=== PATIENT | female | born 1975 | race Caucasian/White ===

== ENCOUNTER 2017-09-16 12:49 | Emergency (ER) | payer BC, OTHER ==
[~2017-09-16] VITALS: Ht 170.2 cm; Wt 50.0 kg
[~2017-09-16 12:49] MED LIST: ADVIN25/60 INH; ALBUAER INH; AMIT10TA6 PO; CLR10 PO; ESCI1TAB9 PO; FLUT0.15 NAE; PRED20TA PO; PRLSR20 PO
[2017-09-16 12:51] VITALS: TEMP 36.8; Ht 170.2 cm; Wt 50.0 kg
[2017-09-16] MEDS ORDERED: SODIUM CHLORIDE 0.9% 1000ML 1,000 ML IV STA (13:02)
--- NOTE | 2017-09-16 13:13 | EMERGENCY ROOM VISIT NOTE ---
History Report prepared by Neno: Tra Sales Under the Supervision of: Dr. Benji Oneal M.D. First contact with patient: 12:55 Chief Complaint: URINARY SYMPTOMS Stated Complaint: POSSIBLE KIDNEY STONE History of Present Illness The patient is a 42 year old female who presents to the Emergency Room with complaints of persistent hematuria that began this morning. The patient states that she has had a couple of episodes of acute back pain in the last two months. She reports the back pain resolves on its own. The patient reports that she currently does not have any back pain, 0 out of 10. She states that this morning, she noticed her urine was red. The patient reports she believes she is having kidney stones due to her symptoms and her mother having a history of them. She denies taking any medications that would turn her urine red, vaginal bleeding, blood in her stools, pain with urination, fever, nausea, and vomiting. The patient states she was recently ill, which triggered her asthma. She reports that she is currently experiencing chest pain and shortness of breath due to her asthma. Source of History: patient Onset: this morning Position: other (global) Quality: other (red urine) Timing: other (persistent) Associated Symptoms: + back pain, No fevers, No nausea, No vomiting, No melena, No hematochezia Note: Denies: vaginal bleeding, pain with urination Review of Systems See HPI for pertinent positives and negatives. A total of ten systems were reviewed and were otherwise negative. Past Medical & Surgical Medical Problems: (1) Asthma (2) Lumbago (3) Tubal Preg W/O Intrauterine Family History Patient reports no known family medical history. Social History Smoking Status: Never Smoker Alcohol Use: none Drug Use: none Marital Status: Housing Status: lives with family Occupation Status: employed Current/Historical Medications Scheduled Budesonide/Formoterol Fumarate (Symbicort 160/4.5 Inhaler ), 2 PUFFS INH BID Escitalopram Oxalate (Lexapro), 10 MG PO DAILY Fluticasone Propionate (Nasal) (Flonase Allergy Relief), 2 SPRAYS NORBERTO DAILY Loratadine (Claritin), 10 MG PO DAILY Montelukast Sodium (Singulair), 10 MG PO DAILY Tamsulosin Hcl (Flomax), 0.4 MG PO DAILY Scheduled PRN Albuterol Sulfate (Proventil Hfa), 2 PUFF INH Q6 PRN for SOB/Wheezing Allergies Coded Allergies: No Known Allergies (Unverified , 09/16/17) Physical Exam Vital Signs Date Time Temp Pulse Resp B/P (MAP) Pulse Ox O2 Delivery O2 Flow Rate FiO2 09/16/17 14:59 68 16 110/62 100 09/16/17 14:16 69 14 109/65 100 Room Air 09/16/17 13:30 71 14 111/63 99 Room Air 09/16/17 12:51 36.8 95 18 102/59 98 Room Air Physical Exam Physical Exam GENERAL: She is oriented to person, place, and time. She appears well- developed and well-nourished. She does not appear distressed. ____ HENT: Exam performed. Head: Normocephalic and atraumatic. Right Ear: External ear normal. No mastoid tenderness. Left Ear: External ear normal. No mastoid tenderness. Mouth/Throat: The oropharynx is clear and moist. No trismus in the jaw. No dental abscesses or uvula swelling. No oropharyngeal exudate or tonsillar abscesses. ____ EYES: Conjunctivae and EOM are normal. Pupils are equal, round, and reactive to light. Right eye exhibits no discharge. Left eye exhibits no discharge. No scleral icterus. ____ NECK: Normal range of motion. Neck supple. No JVD present. No spinous process tenderness present. No carotid bruit present. No rigidity. No tracheal deviation and normal range of motion present. No Brudzinski's sign and no Kernig 's sign noted. ____ CV: Normal rate, regular rhythm, normal heart sounds and intact distal pulses. There is no peripheral edema. Palpable radial pulses bue. ____ PULM/CHEST: Effort normal and breath sounds normal. No respiratory distress. No stridor. She has no wheezes. She has no rales. Chest Wall: She exhibits no tenderness. ____ ABD: The abdomen is soft. Bowel sounds are normal. She has no distension. No mass is present. There is no tenderness. There is no rebound, no guarding, no Williamson's sign and no tenderness at McBurney's point. Rovsig negative MUSC/SKEL: Normal range of motion. There is no peripheral edema, tenderness or deformity. LYMPH: No cervical adenopathy. ____ NEURO: She is alert and oriented to person, place, and time. She has normal strength. No cranial nerve deficit or sensory deficit. Coordination and gait normal. GCS eye subscore is 4. GCS verbal subscore is 5. GCS motor subscore is 6. Cerebellar tests wnl. ____ SKIN: Skin is warm and dry. She is not diaphoretic. ____ PSYCH: She has a normal mood and affect. Her behavior is normal. Judgment and thought content normal. ____ Medical Decision & Procedures ER Provider Diagnostic Interpretation: Radiology results as stated below per my review and radiologist interpretation: CT SCAN OF THE ABDOMEN AND PELVIS WITHOUT CONTRAST CLINICAL HISTORY: Right flank pain COMPARISON STUDY: No previous studies for comparison. TECHNIQUE: CT scan of the abdomen and pelvis was performed from the lung bases to the proximal femurs. Images are reviewed in the axial, sagittal, and coronal planes. IV contrast was not administered for this examination. A dose lowering technique was utilized adhering to the principles of ALARA. CT DOSE: 358.57 mGy.cm FINDINGS: Lower chest: The heart is normal in size and configuration, without pericardial effusion. The lung bases and pleural spaces are clear. Liver: The unenhanced liver is normal in size, contour, and attenuation. There is no intrahepatic biliary ductal dilatation. Gallbladder: Unremarkable. Spleen: Normal in size and attenuation. Pancreas: Unremarkable. Adrenal glands: Unremarkable. Kidneys: There is a 2.5 mm upper pole right renal calculus. There is right-sided hydronephrosis and hydroureter. There is a 4.5 mm proximal right ureteral calculus. Bowel: There are no transition zones indicate bowel obstruction. The appendix appears normal. There is no acute diverticulitis. Peritoneum: There is no intraperitoneal free air or abdominal ascites. Vasculature: The abdominal aorta is normal in course and caliber. Adenopathy: None. Pelvic viscera: The bladder, and pelvic viscera are unremarkable. Skeletal structures: No destructive osseous lesions are seen. IMPRESSION: 1. Right-sided hydronephrosis and hydroureter 2. 4.5 mm proximal right ureteral calculus at the superior L3 level 3. 2.5 mm upper pole right renal calculus 4. No evidence of bowel obstruction. No evidence of free air 5. Normal appendix Electronically signed by: Bruce Gomez M.D. 09/16/2017 1:52 PM Dictated Date/Time: 09/16/2017 1:48 PM Laboratory Results 09/16/17 13:15 Red Blood Count 4.33, Mean Corpuscular Volume 91.0, Mean Corpuscular Hemoglobin 29.8, Mean Corpuscular Hemoglobin Concent 32.7, Mean Platelet Volume 9.6, Neutrophils (%) (Auto) 63.5, Lymphocytes (%) (Auto) 26.4, Monocytes (%) (Auto) 7.3, Eosinophils (%) (Auto) 2.1, Basophils (%) (Auto) 0.5, Neutrophils # (Auto) 3.63, Lymphocytes # (Auto) 1.51, Monocytes # (Auto) 0.42, Eosinophils # (Auto) 0.12, Basophils # (Auto) 0.03 09/16/17 13:15 Test 09/16/17 13:15 White Blood Count 5.72 K/uL (4.8-10.8) Red Blood Count 4.33 M/uL (4.2-5.4) Hemoglobin 12.9 g/dL (12.0-16.0) Hematocrit 39.4 % (37-47) Mean Corpuscular Volume 91.0 fL (80-100) Mean Corpuscular Hemoglobin 29.8 pg (25-34) Mean Corpuscular Hemoglobin Concent 32.7 g/dl (32-36) Platelet Count 258 K/uL (130-400) Mean Platelet Volume 9.6 fL (7.4-10.4) Neutrophils (%) (Auto) 63.5 % Lymphocytes (%) (Auto) 26.4 % Monocytes (%) (Auto) 7.3 % Eosinophils (%) (Auto) 2.1 % Basophils (%) (Auto) 0.5 % Neutrophils # (Auto) 3.63 K/uL (1.4-6.5) Lymphocytes # (Auto) 1.51 K/uL (1.2-3.4) Monocytes # (Auto) 0.42 K/uL (0.11-0.59) Eosinophils # (Auto) 0.12 K/uL (0-0.5) Basophils # (Auto) 0.03 K/uL (0-0.2) RDW Standard Deviation 43.2 fL (36.4-46.3) RDW Coefficient of Variation 12.9 % (11.5-14.5) Immature Granulocyte % (Auto) 0.2 % Immature Granulocyte # (Auto) 0.01 K/uL (0.00-0.02) Urine Color RED Urine Appearance CLEAR (CLEAR) Urine pH 5.5 (4.5-7.5) Urine Specific [place] 1.012 (1.000-1.030) Urine Protein TRACE (NEG) Urine Glucose (UA) NEG (NEG) Urine Ketones NEG (NEG) Urine Occult Blood 3+ (NEG) Urine Nitrite NEG (NEG) Urine Bilirubin NEG (NEG) Urine Urobilinogen NEG (NEG) Urine Leukocyte Esterase TRACE (NEG) Urine WBC (Auto) 1-5 /hpf (0-5) Urine RBC (Auto) >30 /hpf (0-4) Urine Hyaline Casts (Auto) 1-5 /lpf (0-5) Urine Epithelial Cells (Auto) 20-30 /lpf (0-5) Urine Bacteria (Auto) NEG (NEG) Urine Test NEG (NEG) Anion Gap 4.0 mmol/L (3-11) Est Creatinine Clear Calc Drug Dose 79.8 ml/min Estimated GFR () 120.1 Estimated GFR (Non- 103.6 BUN/Creatinine Ratio 20.5 (10-20) Calcium Level 8.8 mg/dl (8.5-10.1) Laboratory results reviewed by me Medications Administered Medications (Trade) Dose Ordered Sig/Thong Route Start Time Stop Time Status Last Admin Dose Admin Sodium Chloride 1,000 ml @ 999 mls/hr Q1H1M STAT IV 09/16/17 13:02 09/16/17 14:02 DC 09/16/17 13:26 999 MLS/HR ED Course 1259: The patient was evaluated in room B08. A complete history and physical exam was performed. 1302: Ordered Sodium Chloride 1000 ml @ 999 mls/hr IV. 1400: I reevaluated the patient. Her vital signs are stable. Labs within normal limits with the exception of urine which shows hematuria, no signs of infection. Her CT shows two right sided kidney stones with hydronephrosis and hydroureter. Patient is able to void and having no problems passing urine. No pain upon repeat examination. She is not experiencing pain with urination at this time. She will be discharged with Flomax and will follow up with urology. DISCHARGE - Plan of care discussed with patient and questions answered. The patient was given both verbal and printed discharge instructions. The patient verbalized understanding and ability to comply. The patient is to seek outpatient follow up as noted in the discharge instructions. The patient verbalized understanding and ability to comply. The patient is discharged in stable condition. The patient was instructed to return for worsening symptoms. Medical Decision vital signs are stable. Labs within normal limits with the exception of urine which shows hematuria, no signs of infection. Her CT shows two right sided kidney stones with hydronephrosis and hydroureter. Patient is able to void and having no problems passing urine. No pain upon repeat examination. She is not experiencing pain with urination at this time. She will be discharged with Flomax and will follow up with urology. DISCHARGE - Plan of care discussed with patient and questions answered. The patient was given both verbal and printed discharge instructions. The patient verbalized understanding and ability to comply. The patient is to seek outpatient follow up as noted in the discharge instructions. The patient verbalized understanding and ability to comply. The patient is discharged in stable condition. The patient was instructed to return for worsening symptoms. Medication Reconcilliation Current Medication List: was personally reviewed by me Blood Pressure Screening Patient's blood pressure: Normal blood pressure Impression Primary Impression: Kidney stones Scribe Attestation The scribe's documentation has been prepared under my direction and personally reviewed by me in its entirety. I confirm that the note above accurately reflects all work, treatment, procedures, and medical decision making performed by me. The chart was completed utilizing [employer] Speech voice recognition software. Grammatical errors, random word insertions, pronoun errors, and incomplete sentences are an occasional consequence of this system due to software limitations, ambient noise, and hardware issues. Any formal questions or concerns about the content, text, or information contained within the body of this dictation should be directly addressed to the physician for clarification. Departure Information Dispostion Home / Self-Care Prescriptions Tamsulosin Hcl (FLOMAX) 0.4 Mg Cap 0.4 MG PO DAILY for 10 Days, #10 CAP Prov: Benji Oneal M.D. 09/16/17 Referrals Bianca Romero M.D. (PCP) Praneeth Clarke M.D. Forms HOME CARE DOCUMENTATION FORM, IMPORTANT VISIT INFORMATION Patient Instructions Kidney Stones - [facility], [facility]
[2017-09-16 13:24] LABS: BASO % 0.5 %; BASO ABS # 0.03 K/uL (0-0.2); EOS % 2.1 %; EOS ABS # 0.12 K/uL (0-0.5); HEMATOCRIT 39.4 % (37-47); HEMOGLOBIN 12.9 g/dL (12.0-16.0); IG# 0.01 K/uL (0.00-0.02); LYMPH % 26.4 %; LYMPH ABS # 1.51 K/uL (1.2-3.4); MEAN CORPUSCULAR HEMOGLOBIN 29.8 pg (25-34); MEAN CORPUSCULAR HGB CONC 32.7 g/dl (32-36); MEAN PLATELET VOLUME 9.6 fL (7.4-10.4); MONO % 7.3 %; MONO ABS # 0.42 K/uL (0.11-0.59); NEUT % 63.5 %; NEUT ABS # 3.63 K/uL (1.4-6.5); PLATELET COUNT 258 K/uL (130-400); RED CELL DISTRIBUTION WIDTH CV 12.9 % (11.5-14.5); RED CELL DISTRIBUTION WIDTH SD 43.2 fL (36.4-46.3); WHITE BLOOD COUNT 5.72 K/uL (4.8-10.8)
[2017-09-16 13:38] LABS: CALCIUM 8.8 mg/dl (8.5-10.1); CREATININE 0.71 mg/dl (0.60-1.20); POTASSIUM 3.9 mmol/L (3.5-5.1)
--- NOTE | 2017-09-16 13:53 | DIAGNOSTIC IMAGING REPORT ---
CT SCAN OF THE ABDOMEN AND PELVIS WITHOUT CONTRAST CLINICAL HISTORY: Right flank pain COMPARISON STUDY: No previous studies for comparison. TECHNIQUE: CT scan of the abdomen and pelvis was performed from the lung bases to the proximal femurs. Images are reviewed in the axial, sagittal, and coronal planes. IV contrast was not administered for this examination. A dose lowering technique was utilized adhering to the principles of ALARA. CT DOSE: 358.57 mGy.cm FINDINGS: Lower chest: The heart is normal in size and configuration, without pericardial effusion. The lung bases and pleural spaces are clear. Liver: The unenhanced liver is normal in size, contour, and attenuation. There is no intrahepatic biliary ductal dilatation. Gallbladder: Unremarkable. Spleen: Normal in size and attenuation. Pancreas: Unremarkable. Adrenal glands: Unremarkable. Kidneys: There is a 2.5 mm upper pole right renal calculus. There is right-sided hydronephrosis and hydroureter. There is a 4.5 mm proximal right ureteral calculus. Bowel: There are no transition zones indicate bowel obstruction. The appendix appears normal. There is no acute diverticulitis. Peritoneum: There is no intraperitoneal free air or abdominal ascites. Vasculature: The abdominal aorta is normal in course and caliber. Adenopathy: None. Pelvic viscera: The bladder, and pelvic viscera are unremarkable. Skeletal structures: No destructive osseous lesions are seen. IMPRESSION: 1. Right-sided hydronephrosis and hydroureter 2. 4.5 mm proximal right ureteral calculus at the superior L3 level 3. 2.5 mm upper pole right renal calculus 4. No evidence of bowel obstruction. No evidence of free air 5. Normal appendix Electronically signed by: Bruce Gomez M.D. 09/16/2017 1:52 PM Dictated Date/Time: 09/16/2017 1:48 PM
[2017-09-16] MEDS ORDERED: MONT1TAB3 PO (14:25)
[2017-09-16] MEDS ORDERED: SYMIN160 INH (14:25)
[2017-09-16] MEDS ORDERED: TAMS0.4C38 PO (14:26)
[2017-09-16 14:59] VITALS: BP 110/62; PULSE 68; O2SAT 100
== END 2017-09-16 14:59 | disposition home or self-care (01) ==
LOC: C.EDB 12:50
DX: N20.0 Calculus of kidney (principal); N13.30 Unspecified hydronephrosis; N13.4 Hydroureter; J45.909 Unspecified asthma, uncomplicated; Z79.51 Long term (current) use of inhaled steroids; Z79.1 Long term (current) use of non-steroidal anti-inflammatories (NSAID); Z79.899 Other long term (current) drug therapy

== ENCOUNTER 2017-09-18 17:47 | Inpatient (IN) | payer OTHER ==
[~2017-09-18] VITALS: Ht 170.2 cm; Wt 61.0 kg
[~2017-09-18 17:47] MED LIST changes: -ADVIN25/60 INH; -AMIT10TA6 PO; +MONT1TAB3 PO; -PRED20TA PO; -PRLSR20 PO; +SYMIN160 INH; +TAMS0.4C38 PO
[2017-09-18] MEDS ORDERED: SODIUM CHLORIDE 0.9% 1000ML 1,000 ML IV STA (18:05)
[2017-09-18] MEDS ORDERED: ONDANSETRON INJ 2 MG/ML 2 ML VIAL IV STA (18:05)
[2017-09-18] MEDS ORDERED: HYDROmorphone INJ 1 MG/ML SYR IV STA (18:05)
--- NOTE | 2017-09-18 18:09 | EMERGENCY ROOM VISIT NOTE ---
History Report prepared by Neno: Samuel Mcnair Under the Supervision of: Dr. Huey Bennett M.D. First contact with patient: 17:58 Chief Complaint: KIDNEY STONE Stated Complaint: KIDNEY STONES History of Present Illness The patient is a 42 year old female who presents to the Emergency Room with complaints of worsening right sided flank pain beginning two days ago. The patient states she was evaluated in the Emergency Department on Sunday. She reports she had a CT scan that revealed kidney stones in her right kidney. The patient notes she followed up with Dr. Wade from [facility] today. She states she was supposed to have outpatient surgery for her current stones because of the anatomy of the patient's body. The patient notes she was told, if her symptoms worsened, to come to the ED and be admitted to medicine. She states she was told Dr. Wade would evaluate her tomorrow morning. She notes she was given Vicodin and taking ibuprofen, and it minimally improved her discomfort. The patient reports she has been nauseous and has not vomited and lost consciousness. She notes she has a strong family history of kidney stones, but she has not had one before. The patient states she has a history of asthma, and she uses Cymbalta. She reports she is currently overcoming a flare, and she has not had to use her rescue inhaler today. The patient denies fevers, rashes, swelling in her legs, chest pain, burning with urination, diarrhea, and recent GI sickness that would cause her to be dehydrated. Source of History: patient Onset: two days ago Position: other (right sided flank) Timing: worsening Modifying Factors (Relieving): ibuprofen (minimal), other (Vicodin - minimal ) Associated Symptoms: + nausea, No LOC, No fevers, No chest pain, No vomiting , No diarrhea Note: Denies: swelling in her legs, burning with urination Review of Systems See HPI for pertinent positives & negatives. A total of 10 systems reviewed and were otherwise negative. Past Medical & Surgical Medical Problems: (1) Asthma (2) Concussion (3) Contusion, back (4) Fall involving ice skates (5) Lumbago (6) Tubal Preg W/O Intrauterine Surgical Problems: (1) History of hysteroscopy (2) Hx of ectopic Family History Diabetes mellitus FH: lung disease FHx: cancer FHx: gallbladder disease Hypertension Kidney disease Kidney stones Social History Smoking Status: Never Smoker Alcohol Use: none Drug Use: none Marital Status: Housing Status: lives with family Occupation Status: employed Current/Historical Medications Scheduled Budesonide/Formoterol Fumarate (Symbicort 160/4.5 Inhaler ), 2 PUFFS INH BID Escitalopram Oxalate (Lexapro), 10 MG PO HS Loratadine (Claritin), 10 MG PO HS Montelukast Sodium (Singulair), 10 MG PO HS Tamsulosin Hcl (Flomax), 0.4 MG PO HS Scheduled PRN Albuterol Sulfate (Proventil Hfa), 2 PUFF INH Q6 PRN for SOB/Wheezing Fluticasone Propionate (Nasal) (Flonase Allergy Relief), 2 SPRAYS NORBERTO DAILY PRN for CONGESTION Hydrocodone/Acetaminophen 5MG/325MG (Sabael 5MG/325MG), 1 TAB PO Q6 PRN for Pain Allergies Coded Allergies: No Known Allergies (Unverified , 09/18/17) Physical Exam Vital Signs Date Time Temp Pulse Resp B/P (MAP) Pulse Ox O2 Delivery O2 Flow Rate FiO2 09/18/17 17:57 36.7 70 18 106/59 98 Room Air Physical Exam GENERAL: Patient is uncomfortable and dehydrated-appearing and in moderate distress. EYES: No scleral icterus, unremarkable pupils. ENT: Mucous membranes moist, no nasal congestion. NECK: No masses appreciated, no meningismus, trachea is midline. RESPIRATORY: No dyspnea. Clear to auscultation and equal bilaterally. No wheeze , no rhonchi. CARDIOVASCULAR: Regular rate and rhythm. No murmurs, rubs, gallops appreciated. GASTROINTESTINAL: Abdomen soft, vague right lateral abdominal tenderness upon palpation, no peritonitis. Bowel sounds positive. No masses appreciated. BACK: No midline tenderness, no CVA tenderness EXTREMITIES: Normal motion all extremities, no cyanosis, no edema. NEUROLOGIC: Alert and oriented, no acute motor or sensory deficits, no focal weakness, cranial nerves grossly intact. SKIN: No rash, no jaundice, no diaphoresis. Medical Decision & Procedures Laboratory Results 09/18/17 18:20 Red Blood Count 4.14, Mean Corpuscular Volume 89.9, Mean Corpuscular Hemoglobin 30.0, Mean Corpuscular Hemoglobin Concent 33.3, Mean Platelet Volume 9.4, Neutrophils (%) (Auto) 69.1, Lymphocytes (%) (Auto) 17.7, Monocytes (%) (Auto) 10.8, Eosinophils (%) (Auto) 2.2, Basophils (%) (Auto) 0.1, Neutrophils # (Auto ) 6.45, Lymphocytes # (Auto) 1.65, Monocytes # (Auto) 1.01, Eosinophils # (Auto ) 0.21, Basophils # (Auto) 0.01 09/18/17 18:20 Test 09/18/17 18:20 09/18/17 18:35 White Blood Count 9.34 K/uL (4.8-10.8) Red Blood Count 4.14 M/uL (4.2-5.4) Hemoglobin 12.4 g/dL (12.0-16.0) Hematocrit 37.2 % (37-47) Mean Corpuscular Volume 89.9 fL (80-100) Mean Corpuscular Hemoglobin 30.0 pg (25-34) Mean Corpuscular Hemoglobin Concent 33.3 g/dl (32-36) Platelet Count 244 K/uL (130-400) Mean Platelet Volume 9.4 fL (7.4-10.4) Neutrophils (%) (Auto) 69.1 % Lymphocytes (%) (Auto) 17.7 % Monocytes (%) (Auto) 10.8 % Eosinophils (%) (Auto) 2.2 % Basophils (%) (Auto) 0.1 % Neutrophils # (Auto) 6.45 K/uL (1.4-6.5) Lymphocytes # (Auto) 1.65 K/uL (1.2-3.4) Monocytes # (Auto) 1.01 K/uL (0.11-0.59) Eosinophils # (Auto) 0.21 K/uL (0-0.5) Basophils # (Auto) 0.01 K/uL (0-0.2) RDW Standard Deviation 42.3 fL (36.4-46.3) RDW Coefficient of Variation 12.9 % (11.5-14.5) Immature Granulocyte % (Auto) 0.1 % Immature Granulocyte # (Auto) 0.01 K/uL (0.00-0.02) Prothrombin Time 10.3 SECONDS (9.0-12.0) Prothromb Time International Ratio 1.0 (0.9-1.1) Activated Partial Thromboplast Time 28.8 SECONDS (21.0-31.0) Partial Thromboplastin Ratio 1.1 Anion Gap 4.0 mmol/L (3-11) Est Creatinine Clear Calc Drug Dose 70.5 ml/min Estimated GFR () 81.3 Estimated GFR (Non- 70.2 BUN/Creatinine Ratio 22.3 (10-20) Calcium Level 9.1 mg/dl (8.5-10.1) Urine Color YELLOW Urine Appearance CLEAR (CLEAR) Urine pH 6.0 (4.5-7.5) Urine Specific [place] 1.023 (1.000-1.030) Urine Protein NEG (NEG) Urine Glucose (UA) NEG (NEG) Urine Ketones NEG (NEG) Urine Occult Blood 2+ (NEG) Urine Nitrite NEG (NEG) Urine Bilirubin NEG (NEG) Urine Urobilinogen NEG (NEG) Urine Leukocyte Esterase SMALL (NEG) Urine WBC (Auto) 1-5 /hpf (0-5) Urine RBC (Auto) 0-4 /hpf (0-4) Urine Hyaline Casts (Auto) 1-5 /lpf (0-5) Urine Epithelial Cells (Auto) 20-30 /lpf (0-5) Urine Bacteria (Auto) 1+ (NEG) Urine Crystals CALCIUM OXALATE (NONE Urine Mucus PRESENT (NONE PRSENT) Urine Test NEG (NEG) Laboratory results as reviewed by me. Medications Administered Medications (Trade) Dose Ordered Sig/Thong Route Start Time Stop Time Status Last Admin Dose Admin Sodium Chloride 1,000 ml @ 999 mls/hr Q1H1M STAT IV 09/18/17 18:05 09/18/17 19:05 DC 09/18/17 18:31 999 MLS/HR Hydromorphone HCl (Dilaudid Inj) 1 mg NOW STAT IV 09/18/17 18:05 09/18/17 18:08 DC 09/18/17 18:31 1 MG Ondansetron HCl (Zofran Inj) 4 mg NOW STAT IV 09/18/17 18:05 09/18/17 18:08 DC 09/18/17 18:31 4 MG Ketorolac Tromethamine (Toradol Inj) 30 mg NOW STAT IV 09/18/17 18:26 09/18/17 18:27 DC 09/18/17 18:46 30 MG Promethazine HCl 12.5 mg/Sodium Chloride 50.5 ml @ 204 mls/hr TODAY@1904 IV 09/18/17 19:04 09/18/17 22:00 DC 09/18/17 19:18 204 MLS/HR ED Course 1800: The patient was evaluated in room B11B. A complete history and physical exam was performed. Discussed results and treatment plan with the patient. She verbalized understanding and agreement with the treatment plan. The patient will be evaluated for further management. 180: I discussed the patient's case with Dr. Wade, Urology. She requested a hospitalist evaluation to watch the patient overnight. She feels Toradol is acceptable for pain. 1829: I discussed the patient's case with Brandi Faust PA-C, [facility]. The patient will be evaluated for further management and care. Medical Decision Differential: Renal Colic, Pyelonephritis, Hydronephrosis, Appendicitis, Diverticulitis, Retroperitoneal Bleed/Infection, Aortic Pathology, MSK, Neurologic Pathology, amongst other pathologies entertained. 42 yr old female with known right ureteral stones and hydronephrosis from visit 2 days ago. Failing outpatient therapy with Vicodin and Motrin. Already seen by Uro who plans procedure tomorrow. Reviewed with Dr Wade who requests hospitalist eval and she will take patient to OR tomorrow. Patient given Dilaudid, Toradol, Zofran IV fluids with improvement. Labs stable. She is not septic appearing. She has no UTI symptoms. Medication Reconcilliation Current Medication List: was personally reviewed by me Blood Pressure Screening Patient's blood pressure: Normal blood pressure Blood pressure disposition: Did not require urgent referral Consults Time Called: 1803 Consulting Physician: Dr. Wade, Urology Returned Call: [phone] I discussed the patient's case with Dr. Wade, Urology. She requested a hospitalist evaluation to watch the patient overnight. She feels Toradol is acceptable for pain. Additional Consults: Time Called: 1826 Consulted Physician: Brandi Faust PA-C, [facility] Returned Call: [phone] Additional Comments: I discussed the patient's case with Brandi Schreckengost, PA-C, [facility]. The patient will be evaluated for further management and care. Impression Primary Impression: Right ureteral stone Additional Impressions: Hydronephrosis Failure of outpatient treatment Scribe Attestation The scribe's documentation has been prepared under my direction and personally reviewed by me in its entirety. I confirm that the note above accurately reflects all work, treatment, procedures, and medical decision making performed by me. Departure Information Dispostion Being Evaluated By Hospitalist Referrals Bianca Romero M.D. (PCP) Patient Instructions My [facility] Health Problem Qualifiers
[2017-09-18] MEDS ORDERED: KETOROLAC TROMETHAMINE 30 MG/ML VIAL IV STA (18:26)
[2017-09-18] MEDS ORDERED: TAMS0.4C38 PO (18:30)
[2017-09-18 18:35] LABS: BASO % 0.1 %; BASO ABS # 0.01 K/uL (0-0.2); EOS % 2.2 %; EOS ABS # 0.21 K/uL (0-0.5); HEMATOCRIT 37.2 % (37-47); HEMOGLOBIN 12.4 g/dL (12.0-16.0); IG# 0.01 K/uL (0.00-0.02); LYMPH % 17.7 %; LYMPH ABS # 1.65 K/uL (1.2-3.4); MEAN CELL VOLUME 89.9 fL (80-100); MEAN CORPUSCULAR HGB CONC 33.3 g/dl (32-36); MEAN PLATELET VOLUME 9.4 fL (7.4-10.4); MONO % 10.8 %; MONO ABS # 1.01 K/uL (0.11-0.59); NEUT % 69.1 %; NEUT ABS # 6.45 K/uL (1.4-6.5); PLATELET COUNT 244 K/uL (130-400); RED CELL DISTRIBUTION WIDTH CV 12.9 % (11.5-14.5); RED CELL DISTRIBUTION WIDTH SD 42.3 fL (36.4-46.3); WHITE BLOOD COUNT 9.34 K/uL (4.8-10.8)
[2017-09-18 18:51] LABS: CALCIUM 9.1 mg/dl (8.5-10.1); CREATININE 0.98 mg/dl (0.60-1.20)
[2017-09-18] MEDS ORDERED: PROMETHAZINE HCL INJ 12.5 MG in SODIUM CHLORIDE 0.9% 50ML 50 ML IV SCH (19:04)
[2017-09-18] MEDS ORDERED: POLYETHYLENE (MIRALAX) 17 GM PACK PO PRN (19:15)
[2017-09-18 19:18] LABS: PTT PATIENT 28.8 SECONDS (21.0-31.0)
[2017-09-18] MEDS ORDERED: HYDR-5688 PO (19:21)
[2017-09-18 19:22] VITALS: Ht 170.2 cm; Wt 61.0 kg
[2017-09-18] MEDS ORDERED: FLUTICASONE PROPIONATE NA SPR 16 GM BTL NAE PRN (19:30)
[2017-09-18] MEDS ORDERED: ALBUTEROL HFA 8 GM INHALER INH PRN (19:30)
--- NOTE | 2017-09-18 19:51 | History and Physical ---
History & Physical Date & Time of Service: September 18, 2017 at 19:34 Chief Complaint: Kidney Stones Primary Care Physician: Bianca Romero M.D. History of Present Illness Source: patient, clinic records, hospital records Pt is 42 y/o F with PMH asthma, anxiety presented to ER with c/o R flank pain. Patient seen in ER 09/16/17 for right flank pain and diagnosed with right ureteral stone was discharged home. Patient taking Flomax. Patient followed up with Dr. Wade-urologist today and given hydrocodone for pain with the plan of outpatient procedure-ureteroscopy on 09/21/17. Today patient developed increased pain not relieved with hydrocodone. In ER patient with some nausea. Patient reports is still urinating and denies any dysuria. Noticed hematuria 2 days ago none since. Denies history of kidney stone in past. Denies fever/ chills, diaphoresis, V/D/C, NINA, dizziness, syncope, vision changes, neck pain, CP, SOB, orthopnea, palpitations, cough, sore throat, choking, other abdominal pain, pelvic pain, weakness, extremity edema, rashes. Past Medical/Surgical History Medical Problems: (1) Asthma Status: Chronic (2) Concussion Status: Resolved (3) Contusion, back Status: Resolved (4) Fall involving ice skates Status: Resolved Surgical Problems: (1) History of hysteroscopy Status: Resolved (2) Hx of ectopic Status: Resolved Family History Diabetes mellitus FH: lung disease FHx: cancer FHx: gallbladder disease Hypertension Kidney disease Kidney stones Social History Smoking Status: Never Smoker Smokeless Tobacco Use: No Alcohol Use: none Drug Use: none Marital Status: Occupational Status: employed Immunizations History of Influenza Vaccine: Unknown History of Tetanus Vaccine?: No History of Pneumococcal: No History of Hepatitis B Vaccine: Unknown Allergies Coded Allergies: No Known Allergies (Unverified , 09/18/17) Home Medications Scheduled Budesonide/Formoterol Fumarate (Symbicort 160/4.5 Inhaler ), 2 PUFFS INH BID Escitalopram Oxalate (Lexapro), 10 MG PO HS Loratadine (Claritin), 10 MG PO HS Montelukast Sodium (Singulair), 10 MG PO HS Tamsulosin Hcl (Flomax), 0.4 MG PO HS Scheduled PRN Albuterol Sulfate (Proventil Hfa), 2 PUFF INH Q6 PRN for SOB/Wheezing Fluticasone Propionate (Nasal) (Flonase Allergy Relief), 2 SPRAYS NORBERTO DAILY PRN for CONGESTION Hydrocodone/Acetaminophen 5MG/325MG ([place] 5MG/325MG), 1 TAB PO Q6 PRN for Pain Review of Systems See HPI for pertinent positives & negatives. All other systems reviewed and were otherwise negative Physical Exam Vital Signs Date Time Temp Pulse Resp B/P (MAP) Pulse Ox O2 Delivery O2 Flow Rate FiO2 09/18/17 19:24 36.7 70 18 106/59 98 09/18/17 17:57 36.7 70 18 106/59 98 Room Air General Appearance: WD/WN, + mild distress Head: normocephalic, atraumatic Eyes: normal inspection, sclerae normal ENT: hearing grossly normal, pharynx normal, + pertinent finding (mucous membranes moist) Neck: supple, trachea midline Respiratory/Chest: lungs clear, normal breath sounds, no respiratory distress Cardiovascular: regular rate, rhythm, no murmur Abdomen/GI: normal bowel sounds, non tender, soft Back: + right CVA tenderness Extremities/Musculoskelatal: no calf tenderness, normal capillary refill, no pedal edema, normal range of motion Neurologic/Psych: alert, normal mood/affect, oriented x 3 Skin: warm/dry Diagnostics Laboratory Results Results Past 24 Hours Test 09/18/17 18:20 09/18/17 18:35 Range/Units White Blood Count 9.34 4.8-10.8 K/uL Red Blood Count 4.14 4.2-5.4 M/uL Hemoglobin 12.4 12.0-16.0 g/dL Hematocrit 37.2 37-47 % Mean Corpuscular Volume 89.9 80-100 fL Mean Corpuscular Hemoglobin 30.0 25-34 pg Mean Corpuscular Hemoglobin Concent 33.3 32-36 g/dl Platelet Count 244 130-400 K/uL Mean Platelet Volume 9.4 7.4-10.4 fL Neutrophils (%) (Auto) 69.1 % Lymphocytes (%) (Auto) 17.7 % Monocytes (%) (Auto) 10.8 % Eosinophils (%) (Auto) 2.2 % Basophils (%) (Auto) 0.1 % Neutrophils # (Auto) 6.45 1.4-6.5 K/uL Lymphocytes # (Auto) 1.65 1.2-3.4 K/uL Monocytes # (Auto) 1.01 0.11-0.59 K/uL Eosinophils # (Auto) 0.21 0-0.5 K/uL Basophils # (Auto) 0.01 0-0.2 K/uL RDW Standard Deviation 42.3 36.4-46.3 fL RDW Coefficient of Variation 12.9 11.5-14.5 % Immature Granulocyte % (Auto) 0.1 % Immature Granulocyte # (Auto) 0.01 0.00-0.02 K/uL Prothrombin Time 10.3 9.0-12.0 SECONDS Prothromb Time International Ratio 1.0 0.9-1.1 Activated Partial Thromboplast Time 28.8 21.0-31.0 SECONDS Partial Thromboplastin Ratio 1.1 Sodium Level 140 136-145 mmol/L Potassium Level 4.0 3.5-5.1 mmol/L Chloride Level 106 98-107 mmol/L Carbon Dioxide Level 30 21-32 mmol/L Anion Gap 4.0 3-11 mmol/L Blood Urea Nitrogen 22 7-18 mg/dl Creatinine 0.98 0.60-1.20 mg/dl Est Creatinine Clear Calc Drug Dose 70.5 ml/min Estimated GFR () 81.3 Estimated GFR (Non- 70.2 BUN/Creatinine Ratio 22.3 10-20 Random Glucose 97 70-99 mg/dl Calcium Level 9.1 8.5-10.1 mg/dl Urine Color YELLOW Urine Appearance CLEAR CLEAR Urine pH 6.0 4.5-7.5 Urine Specific [place] 1.023 1.000-1.030 Urine Protein NEG NEG Urine Glucose (UA) NEG NEG Urine Ketones NEG NEG Urine Occult Blood 2+ NEG Urine Nitrite NEG NEG Urine Bilirubin NEG NEG Urine Urobilinogen NEG NEG Urine Leukocyte Esterase SMALL NEG Urine WBC (Auto) 1-5 0-5 /hpf Urine RBC (Auto) 0-4 0-4 /hpf Urine Hyaline Casts (Auto) 1-5 0-5 /lpf Urine Epithelial Cells (Auto) 20-30 0-5 /lpf Urine Bacteria (Auto) 1+ NEG Urine Crystals CALCIUM OXALATE NONE PRSENT Urine Mucus PRESENT NONE PRSENT Urine Test NEG NEG Microbiology Results 09/18/17 Urine Culture, Received Pending Diagnostic Radiology CT ABD/PELVIS FROM 09/16/17: Impression: 1. Right-sided hydronephrosis and hydroureter 2. 4.5 mm proximal right ureteral calculus is superior L3 level 3. 2.5 mm upper pole right renal calculus 4. No evidence of bowel obstruction. No evidence of free air. 5. Normal appendix Impression Assessment and Plan RENAL COLIC/RIGHT HYDRONEPHROSIS Patient with 4.5 mm proximal right renal calculus, initially seen in ER . Patient with uncontrolled pain on oral hydrocodone. In ER today pt afebrile , vitals stable. No leukocytosis, Cr: 0.9. UA: 2+blood, small leuk, 20-30 epithelial, 1+bacteria, +calcium oxalate. Negative urine . In ER pt given Dilaudid, Zofran, Toradol -pending urine culture -morphine prn pain -toradol prn pain -IVF -flomax -Urology consult -npo after midnight for possible procedure tomorrow ASTHMA No CP, SOB or wheezing. -continue albuterol prn, Symbicort, Singulair ANXIETY -continue lexapro DVT Prophylaxis -Ambulation, low risk Disposition admit [facility] Full Code Follows with Dr Romero for routine care Pt was seen with Dr Vieira. See addendum Attending Addendum Pt was seen and examined. Agreed with Reese SLAUGHTER exam, assessment and plan. 42 y/o F with PMH asthma, anxiety presented to ER with c/o R flank pain. Pt was in the ER on 09/[address] abd/pelvis done in the ER showed 4.5 mm proximal right ureteral calculus at the superior L3 level and 2.5 mm upper pole right renal calculus. She saw urologist today and was given script for hydrocodone. Pain did not improved with the hydrocodone. She came to the ER for due to worsening pain. Currently her pain improves. Continue IVF and pain control. Will keep NPO after midnight. Urology consult placed. MD Dariel Resuscitation Status VTE Prophylaxis Will order VTE Prophylaxis: No Reason for no VTE drug order: Treatment not indicated Reason no Mechanical VTE Order: Treatment not indicated Additional Copies To Bianca Romero M.D.
[2017-09-18] MEDS: SODIUM CHLORIDE 0.9% 1000ML 1,000 ML IV SCH (19:54)
[2017-09-18] MEDS: BUDESONIDE/FORMOTEROL FUMARATE 160/4.5 60 PUFFS/INHALER INH SCH (20:54)
[2017-09-18] MEDS: ESCITALOPRAM OXALATE 10 MG TAB PO SCH (20:57)
[2017-09-18] MEDS: MONTELUKAST SOD 10 MG TAB PO SCH (20:57)
[2017-09-18] MEDS: LORATADINE 10 MG TAB PO SCH (20:57)
[2017-09-18 23:25] VITALS: BP 109/70; PULSE 73; TEMP 36.8; O2SAT 98
[2017-09-18] MEDS: ACETAMINOPHEN 325 MG TAB PO PRN (23:26)
[2017-09-18] MEDS: ONDANSETRON INJ 2 MG/ML 2 ML VIAL IV PRN (23:41)
[2017-09-19] MEDS: SODIUM CHLORIDE 0.9% 1000ML 1,000 ML IV SCH ×3 (03:14→20:52)
[2017-09-19] MEDS: ACETAMINOPHEN 325 MG TAB PO PRN (03:53)
[2017-09-19 06:55] VITALS: BP 101/65; PULSE 76; TEMP 36.9; O2SAT 99
[2017-09-19 07:14] LABS: HEMATOCRIT 34.3 % (37-47); HEMOGLOBIN 11.2 g/dL (12.0-16.0); MEAN CELL VOLUME 90.3 fL (80-100); MEAN CORPUSCULAR HEMOGLOBIN 29.5 pg (25-34); MEAN CORPUSCULAR HGB CONC 32.7 g/dl (32-36); MEAN PLATELET VOLUME 9.2 fL (7.4-10.4); PLATELET COUNT 214 K/uL (130-400); RED CELL DISTRIBUTION WIDTH CV 12.8 % (11.5-14.5); RED CELL DISTRIBUTION WIDTH SD 42.3 fL (36.4-46.3); WHITE BLOOD COUNT 6.97 K/uL (4.8-10.8)
[2017-09-19 07:54] LABS: CALCIUM 7.9 mg/dl (8.5-10.1); CREATININE 0.85 mg/dl (0.60-1.20); POTASSIUM 4.1 mmol/L (3.5-5.1)
[2017-09-19] MEDS: TAMSULOSIN HCL 0.4 MG CAP PO SCH (09:03)
[2017-09-19] MEDS: BUDESONIDE/FORMOTEROL FUMARATE 160/4.5 60 PUFFS/INHALER INH SCH ×2 (09:03→20:52)
[2017-09-19] MEDS: KETOROLAC TROMETHAMINE 30 MG/ML VIAL IV PRN ×2 (11:47→20:52)
--- NOTE | 2017-09-19 11:58 | Progress Note ---
Internal Med Progress Note Date of Service: September 19, 2017. Provider Documentation: SUBJECTIVE: The patient was seen and examined in medical floor She was admitted with right ureteric colic secondary to stone and hydronephrosis She has been feeling a lot better since admission Denies to any fever, hematuria or any dysuria She will have procedure this afternoon to relieve the obstruction OBJECTIVE: Vital Signs-as noted below Exam: General-no distress at rest Eyes-normal ENT-normal Neck-supple Lungs-clear to auscultate bilaterally Heart-regular Abdomen-benign, tender right renal angle, bowel sounds present Extremities-no edema Neuro-alert, awake and oriented Lab data as noted below. ASSESSMENT & PLAN: RIGHT RENAL COLIC/RIGHT HYDRONEPHROSIS Patient with 4.5 mm proximal right renal calculus, initially seen in ER . Patient with uncontrolled pain on oral hydrocodone. In ER today pt afebrile , vitals stable. No leukocytosis, Cr: 0.9. UA: 2+blood, small leuk, 20-30 epithelial, 1+bacteria, +calcium oxalate. Negative urine . In ER pt given Dilaudid, Zofran, Toradol -pending urine culture -IVF,Analgesic -flomax -Urology consult -Procedure this afternoon ASTHMA No CP, SOB or wheezing. -continue albuterol prn, Symbicort, Singulair ] -no acute symptoms ANXIETY -continue lexapro DVT Prophylaxis -Ambulation, low risk Disposition admit medsur Full Code Follows with Dr Romero for routine care Disposition Likely discharge Today/Tomorrow Vital Signs: Date Time Temp Pulse Resp B/P (MAP) Pulse Ox O2 Delivery O2 Flow Rate FiO2 09/19/17 07:20 Room Air 09/19/17 06:55 36.9 76 16 101/65 (77) 99 Room Air 09/18/17 23:25 36.8 73 16 109/70 (83) 98 Room Air 09/18/17 23:20 Room Air 09/18/17 20:00 Room Air 09/18/17 19:24 36.7 70 18 106/59 98 09/18/17 19:22 Room Air 09/18/17 17:57 36.7 70 18 106/59 98 Room Air Lab Results: Results Past 24 Hours Test 09/18/17 18:20 09/18/17 18:35 09/19/17 06:59 Range/Units White Blood Count 9.34 6.97 4.8-10.8 K/uL Red Blood Count 4.14 3.80 4.2-5.4 M/uL Hemoglobin 12.4 11.2 12.0-16.0 g/dL Hematocrit 37.2 34.3 37-47 % Mean Corpuscular Volume 89.9 90.3 80-100 fL Mean Corpuscular Hemoglobin 30.0 29.5 25-34 pg Mean Corpuscular Hemoglobin Concent 33.3 32.7 32-36 g/dl Platelet Count 244 214 130-400 K/uL Mean Platelet Volume 9.4 9.2 7.4-10.4 fL Neutrophils (%) (Auto) 69.1 % Lymphocytes (%) (Auto) 17.7 % Monocytes (%) (Auto) 10.8 % Eosinophils (%) (Auto) 2.2 % Basophils (%) (Auto) 0.1 % Neutrophils # (Auto) 6.45 1.4-6.5 K/uL Lymphocytes # (Auto) 1.65 1.2-3.4 K/uL Monocytes # (Auto) 1.01 0.11-0.59 K/uL Eosinophils # (Auto) 0.21 0-0.5 K/uL Basophils # (Auto) 0.01 0-0.2 K/uL RDW Standard Deviation 42.3 42.3 36.4-46.3 fL RDW Coefficient of Variation 12.9 12.8 11.5-14.5 % Immature Granulocyte % (Auto) 0.1 % Immature Granulocyte # (Auto) 0.01 0.00-0.02 K/uL Prothrombin Time 10.3 9.0-12.0 SECONDS Prothromb Time International Ratio 1.0 0.9-1.1 Activated Partial Thromboplast Time 28.8 21.0-31.0 SECONDS Partial Thromboplastin Ratio 1.1 Sodium Level 140 142 136-145 mmol/L Potassium Level 4.0 4.1 3.5-5.1 mmol/L Chloride Level 106 109 98-107 mmol/L Carbon Dioxide Level 30 28 21-32 mmol/L Anion Gap 4.0 5.0 3-11 mmol/L Blood Urea Nitrogen 22 12 7-18 mg/dl Creatinine 0.98 0.85 0.60-1.20 mg/dl Est Creatinine Clear Calc Drug Dose 70.5 81.3 ml/min Estimated GFR () 81.3 96.6 Estimated GFR (Non- 70.2 83.3 BUN/Creatinine Ratio 22.3 14.5 10-20 Random Glucose 97 94 70-99 mg/dl Calcium Level 9.1 7.9 8.5-10.1 mg/dl Urine Color YELLOW Urine Appearance CLEAR CLEAR Urine pH 6.0 4.5-7.5 Urine Specific [place] 1.023 1.000-1.030 Urine Protein NEG NEG Urine Glucose (UA) NEG NEG Urine Ketones NEG NEG Urine Occult Blood 2+ NEG Urine Nitrite NEG NEG Urine Bilirubin NEG NEG Urine Urobilinogen NEG NEG Urine Leukocyte Esterase SMALL NEG Urine WBC (Auto) 1-5 0-5 /hpf Urine RBC (Auto) 0-4 0-4 /hpf Urine Hyaline Casts (Auto) 1-5 0-5 /lpf Urine Epithelial Cells (Auto) 20-30 0-5 /lpf Urine Bacteria (Auto) 1+ NEG Urine Crystals CALCIUM OXALATE NONE PRSENT Urine Mucus PRESENT NONE PRSENT Urine Test NEG NEG Microbiology Results 09/18/17 Urine Culture, Received Pending
[2017-09-19 15:05] VITALS: BP 99/61; PULSE 76; TEMP 37; O2SAT 99
[2017-09-19] MEDS ORDERED: FENTANYL CITRATE INJ 50 MCG/1 ML 2 ML VIAL ONE ×2 (17:29→19:48)
[2017-09-19] MEDS ORDERED: MIDAZOLAM HCL 1 MG/ML 2ML VIAL ONE (17:29)
[2017-09-19] MEDS ORDERED: PROPOFOL IV EMULSION 10 MG/ML 20 ML VIAL ONE (17:29)
--- NOTE | 2017-09-19 17:54 | Urology Consultation ---
History General Date of Service: September 19, 2017. Chief Complaint: right renal colic Primary Care Physician: Bianca Romero M.D. Pt seen a urologist before?: Yes If yes, why?: right renal colic and ureteral stone History of Present Illness I am asked by Dr Vieira to evaluate and treat patient for right renal colic. She has a right ureteral stone with mild hydronephrosis. It also looks like her ureter is narrow in the upper ureter just distal to the stone. We were planning a right rpg and ureteroscopy with laser this sunday but her pain worsened so she was admitted via ER last night. Pain gone righ tnow after toradol at noon. Imaging Imaging: CT Laboratory Results Past 24 Hours Test 09/18/17 18:20 09/18/17 18:35 09/19/17 06:59 Range/Units White Blood Count 9.34 6.97 4.8-10.8 K/uL Red Blood Count 4.14 3.80 4.2-5.4 M/uL Hemoglobin 12.4 11.2 12.0-16.0 g/dL Hematocrit 37.2 34.3 37-47 % Mean Corpuscular Volume 89.9 90.3 80-100 fL Mean Corpuscular Hemoglobin 30.0 29.5 25-34 pg Mean Corpuscular Hemoglobin Concent 33.3 32.7 32-36 g/dl Platelet Count 244 214 130-400 K/uL Mean Platelet Volume 9.4 9.2 7.4-10.4 fL Neutrophils (%) (Auto) 69.1 % Lymphocytes (%) (Auto) 17.7 % Monocytes (%) (Auto) 10.8 % Eosinophils (%) (Auto) 2.2 % Basophils (%) (Auto) 0.1 % Neutrophils # (Auto) 6.45 1.4-6.5 K/uL Lymphocytes # (Auto) 1.65 1.2-3.4 K/uL Monocytes # (Auto) 1.01 0.11-0.59 K/uL Eosinophils # (Auto) 0.21 0-0.5 K/uL Basophils # (Auto) 0.01 0-0.2 K/uL RDW Standard Deviation 42.3 42.3 36.4-46.3 fL RDW Coefficient of Variation 12.9 12.8 11.5-14.5 % Immature Granulocyte % (Auto) 0.1 % Immature Granulocyte # (Auto) 0.01 0.00-0.02 K/uL Prothrombin Time 10.3 9.0-12.0 SECONDS Prothromb Time International Ratio 1.0 0.9-1.1 Activated Partial Thromboplast Time 28.8 21.0-31.0 SECONDS Partial Thromboplastin Ratio 1.1 Sodium Level 140 142 136-145 mmol/L Potassium Level 4.0 4.1 3.5-5.1 mmol/L Chloride Level 106 109 98-107 mmol/L Carbon Dioxide Level 30 28 21-32 mmol/L Anion Gap 4.0 5.0 3-11 mmol/L Blood Urea Nitrogen 22 12 7-18 mg/dl Creatinine 0.98 0.85 0.60-1.20 mg/dl Est Creatinine Clear Calc Drug Dose 70.5 81.3 ml/min Estimated GFR () 81.3 96.6 Estimated GFR (Non- 70.2 83.3 BUN/Creatinine Ratio 22.3 14.5 10-20 Random Glucose 97 94 70-99 mg/dl Calcium Level 9.1 7.9 8.5-10.1 mg/dl Urine Color YELLOW Urine Appearance CLEAR CLEAR Urine pH 6.0 4.5-7.5 Urine Specific [place] 1.023 1.000-1.030 Urine Protein NEG NEG Urine Glucose (UA) NEG NEG Urine Ketones NEG NEG Urine Occult Blood 2+ NEG Urine Nitrite NEG NEG Urine Bilirubin NEG NEG Urine Urobilinogen NEG NEG Urine Leukocyte Esterase SMALL NEG Urine WBC (Auto) 1-5 0-5 /hpf Urine RBC (Auto) 0-4 0-4 /hpf Urine Hyaline Casts (Auto) 1-5 0-5 /lpf Urine Epithelial Cells (Auto) 20-30 0-5 /lpf Urine Bacteria (Auto) 1+ NEG Urine Crystals CALCIUM OXALATE NONE PRSENT Urine Mucus PRESENT NONE PRSENT Urine Test NEG NEG Microbiology Results 09/18/17 Urine Culture - Final, Complete MORE THAN THREE TYPES OF ORGANISMS [place]... Labs were reviewed and are within normal limits unless listed below. Labs are available in the chart and at [facility] Problem List Medical Problems: (1) Failure of outpatient treatment Status: Acute (2) Hydronephrosis Status: Acute (3) Kidney stones Status: Acute (4) Right ureteral stone Status: Acute (5) Shortness of breath Status: Acute Past History no pertinent history Pt had a problem w anesthesia?: No Family History Diabetes mellitus FH: lung disease FHx: cancer FHx: gallbladder disease Hypertension Kidney disease Kidney stones Social History Smoking: non-smoker Alcohol: socially Marital status: single, Occupation status: employed Immunizations History of Influenza Vaccine: Unknown History of Tetanus Vaccine?: No History of Pneumococcal: No History of Hepatitis B Vaccine: Unknown History of MDRO No Allergies Coded Allergies: No Known Allergies (Unverified , 09/18/17) Medications Home Medications: Home Meds and Scripts Medications Dose Route/Sig Max Daily Dose Days Date Category Dose Instructions [place] 5MG/325MG (Acetaminophen/Hydrocodone Bitart) Tab 1 Tab PO Q6 PRN 30 09/18/17 Reported PRN PAIN Flomax (Tamsulosin Hcl) 0.4 Mg Cap 0.4 Mg PO HS 09/18/17 Reported Symbicort 160/4.5 Inhaler (Budesonide/Formoterol Fumarate) Aero 2 Puffs INH BID 09/16/17 Reported Singulair (Montelukast Sodium) 10 Mg Tab 10 Mg PO HS 09/16/17 Reported Flonase Allergy Relief (Fluticasone Propionate (Nasal)) 50 Mcg/Act Spr 2 Sprays NORBERTO DAILY PRN 04/19/16 Reported Claritin (Loratadine) 10 Mg Tab 10 Mg PO HS 04/19/16 Reported Proventil Hfa (Albuterol Sulfate) 108 Mcg/Act Aer 2 Puff INH Q6 PRN 04/19/16 Reported Lexapro (Escitalopram Oxalate) 10 Mg Tab 10 Mg PO HS 05/26/13 Reported Inpatient Medications: Current Inpatient Medications Medications (Trade) Dose Ordered Sig/Thong Route Start Time Stop Time Status Last Admin Dose Admin Acetaminophen (Tylenol Tab) 650 mg Q4H PRN PO 09/18/17 19:15 10/18/17 19:14 09/19/17 03:53 650 MG Polyethylene (Miralax Powder Packet) 17 gm DAILY PRN PO 09/18/17 19:15 10/18/17 19:14 Ondansetron HCl (Zofran Inj) 4 mg Q6H PRN IV 09/18/17 19:15 10/18/17 19:14 09/18/17 23:41 4 MG Sodium Chloride 1,000 ml @ 125 mls/hr Q8H IV 09/18/17 19:15 10/18/17 19:14 09/19/17 11:07 125 MLS/HR Ketorolac Tromethamine (Toradol Inj) 30 mg Q6H PRN IV 09/18/17 19:15 09/23/17 19:14 09/19/17 11:47 30 MG Morphine Sulfate (MoRPHine SULFATE INJ) 2 mg Q4 PRN IV 09/18/17 19:30 10/02/17 19:29 Tamsulosin HCl (Flomax Cap) 0.4 mg QAM PO 09/19/17 09:00 10/19/17 08:59 09/19/17 09:03 0.4 MG Albuterol (Ventolin Hfa Inhaler) 2 puffs Q6 PRN INH 09/18/17 19:30 10/18/17 19:29 Budesonide/ Formoterol Fumarate (Symbicort 160/ 4.5 Inh) 2 puffs BID INH 09/18/17 21:00 10/18/17 20:59 09/19/17 09:03 2 PUFFS Escitalopram Oxalate (Lexapro Tab) 10 mg HS PO 09/18/17 21:00 10/18/17 20:59 09/18/17 20:57 10 MG Fluticasone Propionate (Flonase Nasal [place]) 2 sprays DAILY PRN NORBERTO 09/18/17 19:30 10/18/17 19:29 Loratadine (Claritin Tab) 10 mg HS PO 09/18/17 21:00 10/18/17 20:59 09/18/17 20:57 10 MG Montelukast Sodium (Singulair Tab) 10 mg HS PO 09/18/17 21:00 10/18/17 20:59 09/18/17 20:57 10 MG Review of Systems Review of Systems Constitutional: No fever, No chills Gastrointestinal: + abdominal pain, No nausea, No vomiting Cardiovascular: No chest pain, No irregular heartbeat Respiratory: No shortness of breath Female : + frequent urination, + kidney stones Physical Exam Vital Signs: Vital Signs Past 12 Hours Date Time Temp Pulse Resp B/P (MAP) Pulse Ox O2 Delivery O2 Flow Rate FiO2 09/19/17 15:20 Room Air 09/19/17 15:05 37.0 76 17 99/61 (74) 99 Room Air 09/19/17 07:20 Room Air 09/19/17 06:55 36.9 76 16 101/65 (77) 99 Room Air Physical Exam: General Appearance: WD/WN, no apparent distress, + thin Eyes: bilateral eyes normal inspection ENT: TMs normal Neck: no adenopathy Respiratory/Chest: lungs clear, no accessory muscle use Cardiovascular: no edema Extremities: non-tender, normal inspection Neurologic/Psychiatric: alert, normal mood/affect, oriented x 3 Skin: normal color, warm/dry, no rash Lymphatic: no adenopathy Assessment & Plan Assessment & Plan right ureteral stone plan right rpg ureteroscopy laser lithotripsy basekt stone extraction stent 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
[2017-09-19] MEDS ORDERED: CEFAZOLIN SOD 2000MG/15 ML IV PUSH ONE (17:58)
[2017-09-19] MEDS ORDERED: Cysto-Conray II 17.2% 250ML BOTTLE ONE (18:03)
[2017-09-19] MEDS ORDERED: ONDANSETRON INJ 2 MG/ML 2 ML VIAL ONE (18:19)
[2017-09-19] MEDS ORDERED: DEXAMETHASONE SOD INJ 4 MG/ML VIAL ONE (18:19)
[2017-09-19] MEDS ORDERED: PHENYLEPHRINE HCL INJ 10 MG/ML VIAL ONE (18:22)
[2017-09-19] MEDS ORDERED: GLYCOPYRROLATE INJ 0.2 MG/ML VIAL ONE (18:48)
[2017-09-19] MEDS ORDERED: BELLADONNA/OPIUM SUPP 60 MG SUPP PR ONE ×2 (19:20→19:28)
--- NOTE | 2017-09-19 19:36 | [facility] Operative Report ---
Operative Report Operative Date September 19, 2017. Pre-Operative Diagnosis right ureteral stone Post-Operative Diagnosis right ureteral stone plus upper ureteral stenosis Procedure(s) Performed Cystoscopy,Retrograde Pyelogram, Flexible Ureteroscopy, Laser Lithotripsy, Basket Stone Extraction, Right ureteral stent placement Surgeon Dr. Tati Wade Wheel Shop Supervisor Surgeon(s) none Estimated Blood Loss 2cc Findings acute angulatio in upper ureter with dilated upper ureter and renal pelvis Fluids 1200mL Specimens A. Right ureteral stone - stone analysis Drains 6 fr 24 centimeter double j stent Anesthesia Type General Complication(s) none Disposition yes Recovery Room / PACU Indications 9mm stone in the right upper ureter with pain Description of Procedure Patient was given general LMA anesthesia and placed in lithotomy position. Her genitals were prepped and draped in sterile fashion. Time out held with team. I placed a 21 fr rigid cystoscope to bladder. The urethra is unremarkable. The UOs are in normal location small slit shape. I placed a road runner 3 inches up right ureter and advanced a 5 fr open ended cath to distal ureter. I injected 8mL of dye to do right retrograde pyelogram. It confirms a acute angulation and narrowing of the upper ureter with dilation above obstruction of 30mm of upper ureter and a very hydronephrotic kidney. Stone is free floating in kidney lower pole. I passed a wore up the right kidney ans with some manipulation entered the kidney. I switched to a stiff wire. I then placed a second wire and a dual lumen cath. the dual lumen cath will not pass the UVJ. I used the inner stylet of a 04/12 28 centimeter ureteral access sheath to calibrate the UO. I was then able to pass the flexible ureteroscope into the upper ureter. It is difficult to get past the ureteral stenosis in the upper ureter but over a second wire and with careful vision I got in. Her stone was difficult to locate in the capacious collecting system. Then once found it was difficult to grasp in its medial lower pole location to move it to upper pole for lasering. I did laser stone into about 8 pieces in upper pole. I basket extracted 6 pieces. I cannot locate the remaining pieces and they are not seen on fluoro. The may be in a small clot. I removed scope and drained the bladder. I placed a 24 centimeter 6 Fr double J stent easily. There is brisk efflux after placement. I left bladder empty and concluded case. I placed a belladonna and opium suppository for post-op pain. She transferred to recovery under my escort, in stable condition. 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 Any exceptions are noted below.
[2017-09-19] MEDS ORDERED: PROMETHAZINE HCL INJ 12.5 MG in SODIUM CHLORIDE 0.9% 50ML 50 ML IV PRN (19:45)
[2017-09-19] MEDS ORDERED: ONDANSETRON INJ 2 MG/ML 2 ML VIAL IV PRN (19:45)
[2017-09-19] MEDS ORDERED: NALOXONE HCL 0.4 MG/1 ML VIAL/CARP IV PRN (19:45)
[2017-09-19] MEDS ORDERED: FLUMAZENIL 0.1 MG/1 ML 10 ML VIAL IV PRN (19:45)
[2017-09-19] MEDS ORDERED: EpHEDrine SULFATE INJ 50 MG/ML AMP IV PRN (19:45)
[2017-09-19] MEDS ORDERED: ATROPINE SULFATE 0.1 MG/ML 5ML SYR IV PRN (19:45)
[2017-09-19] MEDS: FENTANYL CITRATE INJ 50 MCG/1 ML 2 ML VIAL IV PRN ×2 (19:50→19:55)
--- NOTE | 2017-09-19 19:51 | DIAGNOSTIC IMAGING REPORT ---
INTRAOPERATIVE RADIOGRAPHS CLINICAL HISTORY: Nephrolithiasis. Right ureteral stone. Retrograde ureterogram and lithotripsy procedure with stent placement. Fluoroscopy time: 73 seconds. FINDINGS: 5 spot fluoroscopic views of the right abdomen from a retrograde ureterogram and lithotripsy procedure are correlated with abdominal CT dated 09/16/2017. The initial image shows opacification of the right ureter. An obstructing calculus is seen in the proximal right ureter with moderate to severe right hydroureteronephrosis. The second image shows the lithotripsy device being advanced. The final images show a right ureteral stent being deployed. IMPRESSION: Intraoperative images from a right-sided laser lithotripsy and ureteral stent placement procedure as above. Electronically signed by: Sean Kidd M.D. 09/19/2017 7:49 PM Dictated Date/Time: 09/19/2017 7:48 PM
[2017-09-19 20:20] VITALS: BP 112/71; PULSE 89; TEMP 36.3; O2SAT 97
[2017-09-19] MEDS: LORATADINE 10 MG TAB PO SCH (20:52)
[2017-09-19] MEDS: MONTELUKAST SOD 10 MG TAB PO SCH (20:52)
[2017-09-19] MEDS: ESCITALOPRAM OXALATE 10 MG TAB PO SCH (20:52)
[2017-09-19 21:27] VITALS: BP 109/68; PULSE 101; TEMP 36.3; O2SAT 98
[2017-09-19] MEDS: MoRPHine SULFATE 4 MG/ML 1 ML CARP\\VIAL IV PRN (22:10)
[2017-09-19] MEDS: ONDANSETRON INJ 2 MG/ML 2 ML VIAL IV PRN (22:10)
--- NOTE | 2017-09-19 22:35 | Anesthesiology Progress Note ---
Anesthesia Post Op Note Date & Time September 19, 2017 at 22:35 Vital Signs Pain Intensity: 7.0 Vital Signs Past 12 Hours Date Time Temp Pulse Resp B/P (MAP) Pulse Ox O2 Delivery O2 Flow Rate FiO2 09/19/17 21:27 36.3 101 17 109/68 (82) 98 Room Air 09/19/17 20:20 97 Room Air 09/19/17 20:20 97 Room Air 09/19/17 20:20 36.3 89 14 112/71 (85) 97 Room Air 09/19/17 20:15 36.4 94 18 115/65 98 Room Air 09/19/17 20:05 95 18 113/64 97 Room Air 09/19/17 19:55 36.5 93 18 124/68 100 Oxymask 10 09/19/17 19:45 94 18 118/73 100 Oxymask 10 09/19/17 19:38 36.5 112 18 119/77 100 Oxymask 10 09/19/17 15:20 Room Air 09/19/17 15:05 37.0 76 17 99/61 (74) 99 Room Air Notes Mental Status: alert / awake / arousable, participated in evaluation Pt Amnestic to Procedure: Yes Nausea / Vomiting: adequately controlled Pain: adequately controlled Airway Patency, RR, SpO2: stable & adequate BP & HR: stable & adequate Hydration State: stable & adequate Anesthetic Complications: no major complications apparent
[2017-09-19 23:20] VITALS: BP 101/76; PULSE 92; TEMP 36.8; O2SAT 96
[2017-09-20] MEDS: ACETAMINOPHEN 325 MG TAB PO PRN (00:12)
[2017-09-20] MEDS: KETOROLAC TROMETHAMINE 30 MG/ML VIAL IV PRN ×2 (03:13→09:16)
[2017-09-20 03:18] VITALS: BP 96/57; PULSE 78; TEMP 36.8; O2SAT 96
[2017-09-20] MEDS: SODIUM CHLORIDE 0.9% 1000ML 1,000 ML IV SCH ×2 (04:44→12:21)
[2017-09-20] MEDS ORDERED: CEFAZOLIN SOD 2000MG/15 ML IV PUSH IV ONE (06:00)
[2017-09-20] MEDS: MoRPHine SULFATE 4 MG/ML 1 ML CARP\\VIAL IV PRN (06:03)
[2017-09-20 07:30] VITALS: BP 102/64; PULSE 68; TEMP 36.6; O2SAT 97
--- NOTE | 2017-09-20 08:23 | Anesthesiology Progress Note ---
Anesthesia Post Op Note Date & Time September 20, 2017 at 08:23 Vital Signs Vital Signs Past 12 Hours Date Time Temp Pulse Resp B/P (MAP) Pulse Ox O2 Delivery O2 Flow Rate FiO2 09/20/17 07:30 36.6 68 16 102/64 (77) 97 Room Air 09/20/17 03:18 36.8 78 16 96/57 (70) 96 Room Air 09/20/17 00:07 Room Air 09/19/17 23:20 36.8 92 16 101/76 (84) 96 Room Air 09/19/17 21:27 36.3 101 17 109/68 (82) 98 Room Air Notes Mental Status: alert / awake / arousable, participated in evaluation Pt Amnestic to Procedure: Yes Nausea / Vomiting: adequately controlled Pain: adequately controlled Airway Patency, RR, SpO2: stable & adequate BP & HR: stable & adequate Hydration State: stable & adequate Anesthetic Complications: no major complications apparent
[2017-09-20] MEDS: TAMSULOSIN HCL 0.4 MG CAP PO SCH (08:27)
[2017-09-20] MEDS: BUDESONIDE/FORMOTEROL FUMARATE 160/4.5 60 PUFFS/INHALER INH SCH (08:27)
[2017-09-20 09:00] VITALS: O2SAT 97
[2017-09-20 11:51] VITALS: BP 102/62; PULSE 80; TEMP 36.9; O2SAT 98
--- NOTE | 2017-09-20 12:22 | Progress Note ---
Medicine Progress Note Date & Time of Visit: September 20, 2017 at 12:12. Subjective Pt was seen and examined Sitting in bed with no distress Pt said that her pain improves Denies any fever, chest pain, palpitation and SOB Objective Last 8 Hrs Date Time Temp Pulse Resp B/P (MAP) Pulse Ox O2 Delivery O2 Flow Rate FiO2 09/20/17 11:51 36.9 80 17 102/62 (75) 98 Room Air 09/20/17 09:00 97 Room Air 09/20/17 07:36 Room Air 09/20/17 07:30 36.6 68 16 102/64 (77) 97 Room Air Physical Exam: General- No acute distress Head- atraumatic Eyes- PERRL, EOMI ENT- oropharynx clear Neck- supple, no JVD Lungs- clear to auscultation Heart- regular rhythm Abdomen- normal bowel sounds, soft Extremities- no calf tenderness Neuro- alert, oriented x 3; PERRL, EOMI Skin- warm & dry Assessment & Plan RIGHT RENAL COLIC/RIGHT HYDRONEPHROSIS CT abd/pelvis showed 4.5 mm proximal right renal calculus, initially seen in ER 09/16/17. S/p Cystoscopy,Retrograde Pyelogram, Flexible Ureteroscopy, Laser Lithotripsy, Basket Stone Extraction, Right ureteral stent placement performed by Dr. Wade Continue Pyridium for 3 days Continue Flomax daily Follow up with urology Dr. Frost in 10 days for stent removal Continue pain control ASTHMA Asymptomatic Continue albuterol prn, Symbicort, Singulair ] Stable ANXIETY Continue lexapro DVT Prophylaxis Ambulation, low risk CODE STATUS FULL CODE Disposition Will discharge home today Follow up with Dr Romero Consultants: Urology Current Inpatient Medications: Current Inpatient Medications Medications (Trade) Dose Ordered Sig/Thong Route Start Time Stop Time Status Last Admin Dose Admin Acetaminophen (Tylenol Tab) 650 mg Q4H PRN PO 09/18/17 19:15 10/18/17 19:14 09/20/17 00:12 650 MG Polyethylene (Miralax Powder Packet) 17 gm DAILY PRN PO 09/18/17 19:15 10/18/17 19:14 Ondansetron HCl (Zofran Inj) 4 mg Q6H PRN IV 09/18/17 19:15 10/18/17 19:14 09/19/17 22:10 4 MG Sodium Chloride 1,000 ml @ 125 mls/hr Q8H IV 09/18/17 19:15 10/18/17 19:14 09/20/17 04:44 125 MLS/HR Ketorolac Tromethamine (Toradol Inj) 30 mg Q6H PRN IV 09/18/17 19:15 09/23/17 19:14 09/20/17 09:16 30 MG Morphine Sulfate (MoRPHine SULFATE INJ) 2 mg Q4 PRN IV 09/18/17 19:30 10/02/17 19:29 09/20/17 06:03 2 MG Tamsulosin HCl (Flomax Cap) 0.4 mg QAM PO 09/19/17 09:00 10/19/17 08:59 09/20/17 08:27 0.4 MG Albuterol (Ventolin Hfa Inhaler) 2 puffs Q6 PRN INH 09/18/17 19:30 10/18/17 19:29 Budesonide/ Formoterol Fumarate (Symbicort 160/ 4.5 Inh) 2 puffs BID INH 09/18/17 21:00 10/18/17 20:59 09/20/17 08:27 2 PUFFS Escitalopram Oxalate (Lexapro Tab) 10 mg HS PO 09/18/17 21:00 10/18/17 20:59 09/19/17 20:52 10 MG Fluticasone Propionate (Flonase Nasal [place]) 2 sprays DAILY PRN NORBERTO 09/18/17 19:30 10/18/17 19:29 Loratadine (Claritin Tab) 10 mg HS PO 09/18/17 21:00 10/18/17 20:59 09/19/17 20:52 10 MG Montelukast Sodium (Singulair Tab) 10 mg HS PO 09/18/17 21:00 10/18/17 20:59 09/19/17 20:52 10 MG
[2017-09-20] MEDS ORDERED: PHEN-775 PO (12:26)
--- NOTE | 2017-09-20 12:34 | Discharge Instructions ---
Discharge Instructions Date of Service September 20, 2017. Admission Reason for Admission: Hydronephrosis, Right Ureteral Stone Discharge Discharge Diagnosis / Problem: Right Ureteral stone, Right hydronephrosis Discharge Goals Goal(s): Decrease discomfort, Improve function, Improve disease control Activity Recommendations Activity Limitations: resume your previous activity . Instructions / Follow-Up Instructions / Follow-Up Follow up with your primary care provider Dr Romero on 09/25 @ 10:45 AM Follow up with Urology Dr. Wade on 10/01 @ 1:30 PM for stent removal Continue Flomax daily Continue Pyridium for 3 days for pain and bladder spasm. Do not drive or operate any machine after taking the narcotic for pain. Please hold next dose of narcotic if you develop any lethargy or drowsiness Current Hospital Diet Patient's current hospital diet: Regular Diet Discharge Diet Recommended Diet: Regular Diet Procedures Procedures Performed: Cystoscopy,Retrograde Pyelogram, Flexible Ureteroscopy, Laser Lithotripsy, Basket Stone Extraction, Right ureteral stent placement Pending Studies Studies pending at discharge: no Medical Emergencies . Who to Call and When: Medical Emergencies: If at any time you feel your situation is an emergency, please call 911 immediately. . Non-Emergent Contact Non-Emergency issues call your: Primary Care Provider, Urologist Call Non-Emergent contact if: temperature is above 101, your pain is not controlled, your pain is worsening . . "Provider Documentation" section prepared by Zacarias Vieira. .
[2017-09-20 12:39] VITALS: BP 102/62; PULSE 80; TEMP 36.9; O2SAT 98
== END 2017-09-20 13:15 | disposition home or self-care (01) | DRG 660 ==
LOC: C.EDB 17:49 → C.MSN 19:04 → EDBEDREQSVC 19:17 → ENRESERV 19:19
PROVIDERS: ADMIT Internal Medicine; ATTEND Internal Medicine
PROC: 0T768DZ Dilation of Right Ureter with Intraluminal Device, Via Natural or Artificial Opening Endoscopic (ICD-10-PCS; principal; 2017-09-19 08:15)
PROC: 0TC08ZZ Extirpation of Matter from Right Kidney, Via Natural or Artificial Opening Endoscopic (ICD-10-PCS; principal; 2017-09-19 08:15)
PROC: 0TF38ZZ Fragmentation in Right Kidney Pelvis, Via Natural or Artificial Opening Endoscopic (ICD-10-PCS; principal; 2017-09-19 08:15)
DX: N13.2 Hydronephrosis with renal and ureteral calculous obstruction (principal); N13.1 Hydronephrosis with ureteral stricture, not elsewhere classified; N23 Unspecified renal colic; J45.909 Unspecified asthma, uncomplicated; F41.9 Anxiety disorder, unspecified; Z79.899 Other long term (current) drug therapy; Z84.1 Family history of disorders of kidney and ureter; Z82.49 Family history of ischemic heart disease and other diseases of the circulatory system; Z83.6 Family history of other diseases of the respiratory system; Z83.3 Family history of diabetes mellitus; Z83.79 Family history of other diseases of the digestive system

== ENCOUNTER → 2017-11-27 | Outpatient (CLI) | payer OTHER ==
[~2017-11-27] MED LIST changes: +HYDR-5688 PO
--- NOTE | 2017-11-27 15:04 | DIAGNOSTIC IMAGING REPORT ---
R FOOT MIN 3 VIEWS CLINICAL HISTORY: RIGHT FOOT AND ANKLE PAIN S/P INJURY COMPARISON: None. DISCUSSION: The bones and joint spaces appear intact. There is no evidence of fracture, dislocation or bony disease. There is no evidence for soft tissue swelling. IMPRESSION: Negative study. Small heel spur. The above report was generated using voice recognition software. It may contain grammatical, syntax or spelling errors. Electronically signed by: Britton Carpenter M.D. 11/27/2017 3:03 PM Dictated Date/Time: 11/27/2017 3:01 PM
--- NOTE | 2017-11-27 15:05 | DIAGNOSTIC IMAGING REPORT ---
R ANKLE MIN 3 VIEWS CLINICAL HISTORY: RIGHT FOOT AND ANKLE PAIN S/P INJURY trauma. Pain. COMPARISON: None. DISCUSSION: The bones and joint spaces appear intact. There is no evidence of fracture, dislocation or bony disease. There is no evidence for soft tissue swelling. IMPRESSION: Negative study. The above report was generated using voice recognition software. It may contain grammatical, syntax or spelling errors. Electronically signed by: Britton Carpenter M.D. 11/27/2017 3:03 PM Dictated Date/Time: 11/27/2017 3:03 PM
== END | disposition home or self-care (01) ==
LOC: C.RDSM 14:39
PROVIDERS: ATTEND Family Medicine
DX: M79.671 Pain in right foot (principal); M25.571 Pain in right ankle and joints of right foot; M77.31 Calcaneal spur, right foot